=== PATIENT | male | born 1945 | race Caucasian/White ===

== ENCOUNTER → 2016-10-15 | Outpatient (CLI) | payer MEDICARE, OTHER ==
--- NOTE | 2016-10-15 13:31 | MRI ---
EXAM DESCRIPTION: MR LUMBAR SPINE WITHOUT IV CONTRAST CLINICAL HISTORY: 71 y/o M, LUMBAR PAIN COMPARISON: None TECHNIQUE: Multi planar, multi sequence imaging of the lumbar spine was acquired without IV contrast. FINDINGS: Vertebral body height, alignment and marrow signal are unremarkable. Endplate edema noted at L3-4, L4-5 and L5-S1. Disc desiccation noted at all levels. The conus terminates at L1-L2. It is unremarkable. There is a hemangioma seen within the T12 vertebral body. L1-L2: Mild facet degeneration. No spinal canal or neural foraminal narrowing. L2-3: Mild facet degeneration. No spinal canal or neural foraminal narrowing. L3-4: Moderate bilateral facet degeneration and ligamentum flavum thickening. The midline diameter of the thecal sac is narrowed to 8 mm due to prominent epidural lipomatosis. The bony spinal canal is widely patent measuring 1.3 cm in diameter. There is moderate bilateral neural foraminal narrowing likely with contact of the exiting L3 nerve roots. L4-5: Moderate facet degeneration and ligamentum flavum thickening. There is a circumferential disk osteophyte complex measuring approximately 4 mm in diameter. These findings reduce the AP diameter of the spinal canal to a stenotic 8 mm. Moderate bilateral neural foraminal narrowing with definitive contact of the exiting left L4 nerve root. L5-S1: Moderate bilateral facet degeneration. Circumferential 3 mm disc bulge. The AP diameter of the spinal canal is widely patent measuring 1.1 cm. There is moderate bilateral neural foraminal narrowing. Possible contact the bilateral exiting L5 nerve roots noted. IMPRESSION: Today's exam demonstrates no evidence of spinal canal narrowing. There is neural foraminal narrowing from L3-4 through L5-S1 with possible contact of the bilateral exiting L3 nerve roots and bilateral exiting L5 nerve roots. There is definitive contact of the exiting left L4 nerve root. These findings could result in radiculopathies if the patient is symptomatic. Electronically signed by: Krystian Llanes MD 10/15/2016 13:29
== END ==
LOC: MRI 08:56
PROVIDERS: ATTEND Nurse Practitioner Family
DX: M51.16 Intervertebral disc disorders with radiculopathy, lumbar region (principal)

== ENCOUNTER → 2017-03-05 | Outpatient (CLI) | payer MEDICARE, OTHER ==
--- NOTE | 2017-03-06 16:10 | MRI ---
EXAM DESCRIPTION: Cervical Spine CLINICAL HISTORY: RADICULOPATHY COMPARISON: None Available. TECHNIQUE: MRI of the cervical spine is performed according to our usual protocol. FINDINGS: There is good alignment of the cervical spine. Vertebral body stature is maintained. Craniocervical junction and the cervical spinal cord are unremarkable. C2-3: Moderate bilateral neuroforaminal narrowing from uncovertebral joint hypertrophy. The midline diameter of spinal canal is widely patent. C3-4: Severe bilateral neuroforaminal narrowing from a combination of uncovertebral joint and facet hypertrophy. Broad-based posterior disc osteophyte complex with subtle contact of the anterior right margin of the cord. The midline diameter spinal canal is also narrowed to 9 mm. Negative for myelomalacia. C4-5: Severe bilateral neuroforaminal narrowing. Broad-based asymmetric left disc osteophyte complex. Cord contact noted. Negative for myelomalacia. Moderate spinal canal narrowing. The canal measures 7 mm in diameter. C5-6: Severe bilateral neuroforaminal narrowing. Broad-based asymmetric left disc osteophyte complex. Cord contact noted. Negative for myelomalacia. Moderate spinal canal narrowing. The canal measures 7 mm in diameter. C6-7: Severe bilateral neuroforaminal narrowing. Broad-based asymmetric left disc osteophyte complex. Cord contact noted. Negative for myelomalacia. Moderate spinal canal narrowing. The canal measures 7 mm in diameter. Endplate edema noted. C7-T1: No spinal canal or neuroforaminal narrowing. IMPRESSION: 1. Today's exam demonstrates multilevel degenerative change most pronounced from C4-5 through C6-7. At these levels is moderate spinal canal narrowing and cord contact without myelomalacia. 2. Severe neuroforaminal narrowing noted from C4-5 through C6-C7. Electronically signed by: Krystian Llanes MD 03/06/2017 4:11 PM CDT
== END | disposition home or self-care (01) ==
LOC: MRI 08:36
PROVIDERS: ATTEND Physician Assistant
DX: M54.12 Radiculopathy, cervical region (principal)

== ENCOUNTER → 2017-05-08 | Outpatient (CLI) | payer MEDICARE, OTHER ==
--- NOTE | 2017-05-08 17:19 | RAD ---
EXAM DESCRIPTION: Hand,Right 3 Views CLINICAL HISTORY: PAIN COMPARISON: None Available. TECHNIQUE: AP, LATERAL, AND OBLIQUE FINDINGS: Three-view right hand shows no fracture or dislocation. Mild degenerative changes are present without fracture or dislocation. No evidence of a destructive arthropathy is present. One or two periarticular erosions are present. In this male patient with normal mineralization the possibility of an entity such as gout should be considered. IMPRESSION: 1. Normal mineralization and mild degenerative changes with several small periarticular erosive changes suggesting the possibility of gout. 2. In addition there is a slightly larger erosion in the tuft of the distal phalanx of the thumb , of uncertain significance. Electronically signed by: Quentin Shoemaker MD 05/08/2017 5:18 PM CDT
== END | disposition home or self-care (01) ==
LOC: RAD 08:00
PROVIDERS: ATTEND Orthopaedic Surgery
DX: M79.641 Pain in right hand (principal)

== ENCOUNTER → 2017-05-23 | Outpatient (CLI) | payer MEDICARE, OTHER ==
--- NOTE | 2017-05-25 07:35 | RAD ---
Procedure: XR CHEST 2 VIEWS Exam date: 05/23/2017 8:02 AM CDT Ordering Provider: ELIZABET ANDUJAR Clinical Indication: PREOP Comparison: None Findings: Cardiomediastinal silhouette is within normal limits. There is hazy airspace opacities of the right cardiophrenic angle which are favored to represent prominent epicardial fat. Otherwise, the lungs are clear. No pleural effusion or pneumothorax. Osseous structures are nonacute. No evidence of active tuberculosis. Impression: No acute cardiopulmonary process. Electronically signed by: Aaron Berman MD 05/25/2017 7:34 AM CDT
== END | disposition home or self-care (01) ==
LOC: LAB.O 07:45
PROVIDERS: ATTEND Nurse Practitioner Family
DX: Z01.811 Encounter for preprocedural respiratory examination (principal); Z01.812 Encounter for preprocedural laboratory examination

== ENCOUNTER 2017-06-04 06:25 | Day surgery (SDC) | payer MEDICARE, OTHER ==
--- NOTE | 2017-05-30 18:40 | HP ---
CHIEF COMPLAINT: Right hand numbness and wrist pain. HISTORY OF PRESENT ILLNESS: Mr. Zuñiga is a 71 year-old male with a history of pain in the right hand and numbness that has been going on for about 2 years. He has had no trauma related to this and denies any symptoms proximate to the wrist. He says that the numbness predominantly involves the first three and sometimes fourth digit. He has no contralateral symptoms at this time. He has numbness currently at rest and does have some thenar atrophy. Because of his symptoms at rest and the advanced nature of his carpal tunnel syndrome, we talked about surgical intervention. After discussing the risks, benefits, and alternatives to that, he has given informed consent for carpal tunnel release. PAST SURGICAL HISTORY: None. CURRENT MEDICATIONS: None per his report. ALLERGIES: NO KNOWN DRUG ALLERGIES. CODE STATUS: DO NOT RESUSCITATE. IMMUNIZATIONS: Up to date. FAMILY HISTORY: None pertinent to today's complaints. SOCIAL HISTORY: He does not drink or use any illicit drugs. He does smoke. REVIEW OF SYSTEMS: Negative except as indicated in the history of present illness. PHYSICAL EXAMINATION: VITAL SIGNS: Blood pressure 148/81, pulse 119, height 5' 6", weight 160. MENTAL STATUS: The patient is awake, alert, and is able to give a good history and participate in the physical. The patient is oriented to person, place and time. SKIN: Normal tone and turgor. MUSCULOSKELETAL: He has obvious minor thenar atrophy on the affected side. He has intact rn rehabilitation strength. There is no deformity. The hand is warm and well perfused. He maintains full range of motion in all digits. He has equivocal Phalen's and Tinel's as he does complain of numbness at rest. ASSESSMENT: 1. Carpal tunnel syndrome. PLAN: The plan at this point is for carpal tunnel release. We have discussed the risks, benefits, and alternatives to that and he has given informed consent for that. #[id number] [facility]
[~2017-06-04 06:25] MED LIST: LACTATED RINGERS 1,000 ML ONE; SODIUM CHL 0.9% 50ML MIN-BAG+ 50 ML IVPB ONE; ceFAZolin SODIUM 1 GM VIAL ONE
[2017-06-04] MEDS ORDERED: PROPOFOL 200 MG/20 ML VIAL IV ONE (09:00)
[2017-06-04] MEDS ORDERED: BUPIVACAINE 0.25% INJ 30 ML VIAL INJ ONE (09:45)
[2017-06-04] MEDS ORDERED: LIDOCAINE 1% 50 ML VIAL INJ ONE (09:46)
[2017-06-04] MEDS: VANCOMYCIN HCL INJ 1,000 MG VIAL IVPB ONE ×2 (12:10→12:14)
[2017-06-04] MEDS: ceFAZolin SODIUM 1 GM VIAL ONE ×2 (12:10→12:14)
[2017-06-04 14:18] VITALS: BP 195/98; TEMP 97.1; O2SAT 98
--- NOTE | 2017-06-05 09:10 | OP ---
DATE OF PROCEDURE: 06/04/17 PREOPERATIVE DIAGNOSIS: 1. Carpal tunnel syndrome. POSTOPERATIVE DIAGNOSIS: 1. Carpal tunnel syndrome. PROCEDURE: 1. Carpal tunnel release. SURGEON: Hosea Rothman MD. RETAIL ACCOUNT EXECUTIVE: Padilla Cosme CST, SA-C. ANESTHESIA: Local with sedation. COMPLICATIONS: None. FINDINGS: Thickening of the transverse carpal ligament and mild thenar atrophy. INDICATION: The patient has a history of symptoms consistent with carpal tunnel syndrome. Because of his ongoing symptoms and failure of conservative measures, he has requested operative intervention. After discussing the risks, benefits and alternatives to that, the patient has given informed consent for carpal tunnel release. PROCEDURE: The patient was brought to the Operating Room and placed in the supine position. Sedation was administered and local anesthetic was injected into the operative area under sterile conditions. After the injection of anesthetic, the arm was sterilely prepped and draped. A longitudinal incision was made directly overlying the transverse carpal ligament and blunt dissection was carried down to the ligament. The transverse carpal ligament was sharply transected along its length and a Heath elevator was used to ensure complete release of the ligament. Once release had been confirmed, the wound was thoroughly irrigated and the wound was closed with Nylon suture. A sterile dressing was placed and the patient was taken to the Day Surgery Unit. POSTOPERATIVE INSTRUCTIONS: The patient has been encouraged to do range of motion of the digits and will followup with us in two days. #[id number] [facility]
== END 2017-06-04 13:15 | disposition home or self-care (01) ==
LOC: AMB 06:25
PROVIDERS: ATTEND Orthopaedic Surgery
DX: G56.01 Carpal tunnel syndrome, right upper limb (principal); I10 Essential (primary) hypertension; I25.10 Atherosclerotic heart disease of native coronary artery without angina pectoris; K21.9 Gastro-esophageal reflux disease without esophagitis; E78.5 Hyperlipidemia, unspecified; F17.210 Nicotine dependence, cigarettes, uncomplicated; J44.9 Chronic obstructive pulmonary disease, unspecified; I65.29 Occlusion and stenosis of unspecified carotid artery; G89.29 Other chronic pain; M54.9 Dorsalgia, unspecified; I25.2 Old myocardial infarction; Z95.5 Presence of coronary angioplasty implant and graft; Z79.02 Long term (current) use of antithrombotics/antiplatelets; Z79.899 Other long term (current) drug therapy
CPT/HCPCS: 01810; 64721; J0690; J3370; J3490; J7050; J7120

== ENCOUNTER → 2017-07-21 | Outpatient (CLI) | payer OTHER ==
--- NOTE | 2017-07-22 08:27 | US ---
EXAM DESCRIPTION: Venous,Lower Extremity LT CLINICAL HISTORY: LOCALIZED SWELLING, MASS AND LUMP, LOWER LIMB COMPARISON: None Available. TECHNIQUE: Left lower extremity venous duplex utilizing grayscale, color Doppler, and spectral pulse Doppler evaluation. FINDINGS: There is no DVT identified. No filling defects are noted. There is normal color flow observed with good flow augmentation. All deep veins compress normally. Examination was accomplished from the inguinal ligament at the common femoral vein level through the femoral and popliteal veins with evaluation of the peroneal and posterior tibial veins below the knee. IMPRESSION: Normal examination with no evidence of left lower extremity deep venous thrombosis. Electronically signed by: Quentin Shoemaker MD 07/22/2017 8:26 AM CDT
== END | disposition home or self-care (01) ==
LOC: US 10:53
PROVIDERS: ATTEND Nurse Practitioner Family
DX: R22.42 Localized swelling, mass and lump, left lower limb (principal)

== ENCOUNTER → 2017-10-17 | Outpatient (CLI) | payer MEDICARE | END | disposition home or self-care (01) | LOC: LAB.O 11:27 | PROVIDERS: ATTEND Nurse Practitioner Family | DX: Z79.891 Long term (current) use of opiate analgesic (principal) ==